=== PATIENT | male | born 1955 | race Two or more races ===

== ENCOUNTER 2021-02-13 01:54 | Emergency (ER) | payer BC ==
[~2021-02-13] VITALS: Ht 182.9 cm; Wt 73.6 kg
[2021-02-13 01:59] VITALS: BP 180/96
[2021-02-13 02:50] LABS: COLOR,URINE YELLOW (Yellow); UA COLLECTION TYPE FOLEY CATH
[2021-02-13 02:51] LABS: CLARITY,URINE CLEAR (Clear); GLUCOSE, URINE NEGATIVE (Neg); KETONES,URINE NEGATIVE (Neg); NITRITES, URINE NEGATIVE (Neg); OCCULT BLOOD,URINE NEGATIVE (Neg); PROTEIN,URINE TRACE mg/dl (Neg); UROBILINOGEN,URINE 0.2 E.U/dL (0.2-1.0)
[2021-02-13 02:52] LABS: LEUKOCYTE ESTERASE ,URINE TRACE (Neg); RBC,URINE 0-2 /HPF (0-2)
[2021-02-13] MEDS ORDERED: FLO0.4C PO (02:52)
[2021-02-13 02:53] LABS: BACTERIA,URINE NONE SEEN /HPF (Neg); SQUAMOUS EPITHELIAL CELL,UR FEW /LPF (FEW); WBC CLUMPS,URINE FEW /HPF (NEGATIVE)
== END 2021-02-13 03:20 | disposition home or self-care (01) ==
LOC: ER 01:55
DX: R33.9 Retention of urine, unspecified (principal); R10.30 Lower abdominal pain, unspecified
CPT/HCPCS: 51702; 76857; 81001; 87077; 87088; 87186; 99284